=== PATIENT | female | born 1990 | race Caucasian/White ===

== ENCOUNTER 2020-11-05 02:48 | Emergency (ER) | payer SELFPAY ==
[~2020-11-05] VITALS: Ht 157.5 cm; Wt 64.0 kg
[2020-11-05 03:05] VITALS: BP 115/68
--- NOTE | 2020-11-05 03:08 | NUR ---
TO LOBBY A/W BED AMBULATORY
--- NOTE | 2020-11-05 03:41 | NUR ---
SEEN AND EXAMINED BY LIAM WITH ORDERS AND CARRIED OUT.
[2020-11-05] MEDS ORDERED: HYDROcodone/APAP 5/325 MG 1 TAB TAB PO ONE (03:50)
--- NOTE | 2020-11-05 03:52 | NUR ---
MEDICATED PER [facility] ORDER, TOLERATED WELL.
--- NOTE | 2020-11-05 04:00 | NUR ---
RESULT BACK AND NOTED BY ERMD AND FOR D/C
[2020-11-05 04:30] VITALS: BP 115/68
== END 2020-11-05 04:30 | disposition home or self-care (01) ==
LOC: MED 02:48
DX: T17.228A Food in pharynx causing other injury, initial encounter (principal); R07.0 Pain in throat
CPT/HCPCS: 70360; 99283